=== PATIENT | female | born 1935 | race Caucasian/White ===

== ENCOUNTER 2018-03-05 11:00 | Outpatient (RCR) | payer MEDICARE | END 2018-03-24 | disposition home or self-care (01) | LOC: PTY 11:00 | DX: M25.512 Pain in left shoulder (principal) | CPT/HCPCS: 97110; 97140; 97162; G8984; G8985 ==

== ENCOUNTER 2018-03-30 10:15 | Outpatient (RCR) | payer MEDICARE | END 2018-04-24 | disposition home or self-care (01) | LOC: PTY 10:15 | DX: M25.512 Pain in left shoulder (principal) ==

== ENCOUNTER 2018-04-27 14:04 | Outpatient (RCR) | payer MEDICARE | END 2018-05-25 | disposition home or self-care (01) | LOC: PTY 14:04 | DX: M25.512 Pain in left shoulder (principal) ==

== ENCOUNTER 2018-07-12 12:45 | Outpatient (RCR) | payer MEDICARE | END 2018-07-25 | disposition home or self-care (01) | LOC: PTY 12:45 | DX: M75.102 Unspecified rotator cuff tear or rupture of left shoulder, not specified as traumatic (principal); M25.512 Pain in left shoulder | CPT/HCPCS: 97110; 97161; G8984; G8985 ==